=== PATIENT | female | born 1955 | race Caucasian/White ===

== ENCOUNTER 2021-01-18 14:26 | Inpatient (IN) | payer OTHER, MEDICAID, SELFPAY ==
[~2021-01-18] VITALS: Ht 157.5 cm; Wt 70.1 kg
[2021-01-18 14:26] VITALS: BP_SYST 165
--- NOTE | 2021-01-18 14:26 | NUR ---
Pt to bed 7 for evaluation. Pt gowned and attached to hospital monitor.
--- NOTE | 2021-01-18 14:28 | NUR ---
Pt BIB squad 187 for ALOC. Pt came from home and called for help because she was altered today. Pt is unable to answer questions appropriately and is a poor historian. Pt recently had hernia surgery 2 days ago and was prescribed [place]. Pupils appear constricted and pt presents as lethargic. GCS 11 with BS was (168) in route. V/S are stable.
--- NOTE | 2021-01-18 14:30 | NUR ---
Dr. Vasquez at bedside to assess.
[2021-01-18] MEDS ORDERED: NACL 0.9% 1,000 ML IV ONE (14:45)
[2021-01-18] MEDS ORDERED: NALOXONE HCL 2 MG/2 ML SYR (NARCAN) IVP ONE (14:45)
--- NOTE | 2021-01-18 14:50 | NUR ---
# 18 gauge angiocath placed to right AC. Use of asceptic technique. Opsite placed over site. Blood return noted. Blood for lab drawn from site. Flushed with 10 cc of normal saline. No evidence of infiltration noted. Patient tolerated well.
--- NOTE | 2021-01-18 14:50 | NUR ---
Portable CXR done at bedside.
[2021-01-18] MEDS ORDERED: NALOXONE HCL 2 MG/2 ML SYR ONE (14:53)
[2021-01-18] MEDS ORDERED: NALOXONE HCL 0.4 MG/ML AMP (NARCAN) ONE (14:53)
[2021-01-18] MEDS ORDERED: NALOXONE HCL 0.4 MG/ML AMP (NARCAN) IVP ONE (15:00)
--- NOTE | 2021-01-18 15:09 | NUR ---
In and out cath for urine specimen. Urine sent to lab for analysis.
--- NOTE | 2021-01-18 15:10 | NUR ---
Pt to CT scan by sonny.
[2021-01-18] MEDS ORDERED: NALOXONE HCL 2 MG/2 ML SYR IVP ONE (15:15)
--- NOTE | 2021-01-18 15:20 | NUR ---
Pt back from CT scan.
[2021-01-18 15:26] LABS: BLOOD, URINE NEGATIVE (NEGATIVE); CLARITY/URINE CLEAR (CLEAR); COLOR,URINE YELLOW (YELLOW); GLUCOSE,URINE TRACE (NEGATIVE); KETONES,URINE 2+ (NEGATIVE); LEUKOCYTE ESTERASE ,URINE NEGATIVE (NEGATIVE); NITRITE, URINE NEGATIVE (NEGATIVE); PROTEIN URINE NEGATIVE (NEGATIVE)
[2021-01-18 15:29] LABS: INR 1.1 (0.8-1.2); PROTHROMBIN TIME 11.6 SECS (9.5-12.5)
[2021-01-18 15:40] LABS: ANION GAP 9 (5-15); CALCIUM 9.2 mg/dL (8.4-11.0); CHLORIDE 99 mmol/L (98-107); CREATININE 0.84 mg/dL (0.55-1.30); GLUCOSE 153 mg/dL (70-99); POTASSIUM 3.2 mmol/L (3.5-5.1); SODIUM SERUM 137 mmol/L (136-145); UREA NITROGEN, BLOOD 24 mg/dL (8-21)
[2021-01-18 15:41] LABS: BASOPHILS % (AUTO) 0.1 % (0.0-2.0); EOSINOPHILS % (AUTO) 0.4 % (0.0-4.0); HEMATOCRIT 35.9 % (36-48); HEMOGLOBIN 12.8 g/dL (12.0-16.0); LYMPHOCYTES # (AUTO) 1.2 K/uL (1.0-5.5); LYMPHOCYTES % (AUTO) 15.7 % (20.5-51.5); MEAN CORPUSCULAR HEMOGLOBIN 32 pg (27-31); MEAN CORPUSCULAR HGB CONC 36 % (32-36); MEAN CORPUSCULAR VOLUME 89 fL (79.0-98.0); MONOCYTES # (AUTO) 0.7 K/uL (0.0-1.0); MONOCYTES % (AUTO) 9.4 % (1.7-9.3); NEUTROPHILS # (AUTO) 5.9 K/uL (1.8-7.7); NEUTROPHILS % (AUTO) 74.4 % (40.0-70.0); PLATELET COUNT (AUTO) 125 K/uL (130-430); RED BLOOD CELL COUNT(AUTO) 4.04 MIL/uL (4.2-6.2); RED CELL DISTRIBUTION WIDTH 18.1 % (9.0-15.0); WHITE BLOOD COUNT (AUTO) 7.9 K/uL (4.8-10.8)
[2021-01-18 15:44] LABS: GFR AFRICAN AMERICAN 88 mL/min (>90)
[2021-01-18 15:47] LABS: ALBUMIN 3.7 g/dL (3.4-4.8); ASPARTATE AMINOTRANSFERASE 34 U/L (10-37); TOTAL BILIRUBIN 4.2 mg/dL (0.0-1.0)
[2021-01-18 15:49] LABS: ALCOHOL, BLOOD < 3 mg/dL (<10)
[2021-01-18 16:01] LABS: ALANINE AMINOTRANSFERASE 33 U/L (12-78)
[2021-01-18 16:09] LABS: BILIRUBIN,URINE NEGATIVE (NEGATIVE)
--- NOTE | 2021-01-18 16:13 | NUR ---
PT CONTUNUES TO BE REDIRECTED, MOVING IN BED AND IV DISPLACED. NEW IV TO LEFT FA AND COBAN PLACED OVER. SAFETY PRECAUTIONS IN PLACE.
[2021-01-18 16:16] LABS: BARBITURATE, URINE NEGATIVE (NEG <=200); BENZODIAZEPINE, URINE NEGATIVE (NEG <=150); CANNABINOID, URINE NEGATIVE (NEG <=50); COCAINE, URINE NEGATIVE (NEG <=150); METHAMPHETAMINES SCREEN,URINE NEGATIVE (NEG <=500); OPIATE, URINE POSITIVE (NEG <=100); PHENCYCLIDINE SCREEN,URINE NEGATIVE (NEG <=25); UR TRICYCLIC ANTIDEPRESSANTS NEGATIVE (NEG <=300); URINE AMPHETAMINE NEGATIVE (NEG <=500); URINE METHADONE NEGATIVE (NEG <=200); URINE OXYCODONE SCREEN NEGATIVE (NEG <=100); URINE PROPOXYPHENE SCREEN NEGATIVE (NEG <=300)
--- NOTE | 2021-01-18 17:40 | NUR ---
FAMILY CALLED AND STATES THEY WILL BE IN TO SEE PT.
[2021-01-18 17:55] LABS: ACETAMINOPHEN < 1 ug/mL (1-30)
--- NOTE | 2021-01-18 18:29 | NUR ---
FAMILY AT BEDSIDE, UPDATED ON STATUS AND ALL QUESTIONS ANSWERED. REQUEST TO SPEAK WITH DR FIERRO ABOUT LIVER HISTORY.
[2021-01-18] MEDS ORDERED: KCL 20 mEq in 100 mL (PREMIX) 100 ML IV ONE (19:15)
--- NOTE | 2021-01-18 20:18 | NUR ---
Patient will be admitted to care of DR. EVANGELISTA. Admitted to MED SURG unit. Will go to room TBD. Belongings list completed. Complete and up to date summary report printed. SBAR report to be given at bedside with opportunity for questions.
--- NOTE | 2021-01-18 20:30 | NUR ---
PT UNABLE TO REVIEVE FULL LACTULOSE PO. TAKEN ABOUT 15 ML
[2021-01-18] MEDS ORDERED: LACTULOSE 20 GM/30 ML UDC PO ONE (20:45)
--- NOTE | 2021-01-18 22:20 | NUR ---
PT TRANSFERRED TO ROOM 100A VIA [facility].
[2021-01-18 22:35] VITALS: BP_SYST 152
--- NOTE | 2021-01-18 22:35 | NUR ---
ROUNDS PATIENT IN BED, VITALS STABLE, NO SIGNS OF ANY PAIN AND DISCOMFORT NOTED. ADMISSION DONE AND DOCUMENTED. NEEDS ATTENDED TO. SAFETY MEASURES IN PLACED. BED ALARM ON. CALL LIGHT PLACED WITHIN REACH.
[2021-01-18] MEDS: D5/0.45 NS 1,000 ML IV SCH (22:55)
--- NOTE | 2021-01-19 05:13 | NUR ---
Nutrition Update Kvng Scale 16 noted. Pt admitted for Altered Mental Status Diet: NPO BMI: 28.3 kg/m2 RD to follow per nutrition care standards.
[2021-01-19] MEDS: D5/0.45 NS 1,000 ML IV SCH ×2 (06:15→12:18)
--- NOTE | 2021-01-19 06:33 | NUR ---
CLOSING NOTES PATIENT AWAKE, NO COMPLAINTS AT THIS TIME, ALL NEEDS ATTENDED TO. SAFETY MEASURES MAINTAINED. CALL LIGHT PLACED WITHIN REACH.
--- NOTE | 2021-01-19 07:17 | NUR ---
CONSULTATION PAGED/CALLED Reason for Consultation: [] ALOC Person Who was Notified: [] Stefani BURRELL Consulting Physician: [] Stefani BURRELL Bee Raiser Specialty: [] NEURO Ordering Physician: [] DR Iván EVANGELISTA
--- NOTE | 2021-01-19 07:45 | NUR ---
OPENING NOTE Received shift report from shift production associate RN. Patient AxOx1 (self) currently resting in bed and respirations remain even and non-labored on room air. IV is patent and infusing fluids as ordered. Bed locked in lowest position and call light is within reach. Will continue to monitor.
[2021-01-19 08:00] VITALS: BP_SYST 150
[2021-01-19] MEDS ORDERED: ONDANSETRON HCL 4 MG/2 ML VIAL IVP PRN (09:30)
--- NOTE | 2021-01-19 09:45 | NUR ---
CONSULTATION PAGED/CALLED Reason for Consultation: [] ELEVATED AMMONIA Person Who was Notified: [] GREGORIO Consulting Physician: [] DR BRITT County Administrator Specialty: [] GI Ordering Physician: [] DR EVANGELISTA
--- NOTE | 2021-01-19 10:20 | NUR ---
Patient History History obtained from daughter Esthela Espinoza at [phone] (wants to be notified with updates): reports medical history liver cirrhosis, hypertension, diabetes mellitus, esophageal varices, neuropathy, and ventral hernia with mesh placement on 01/13/21. Daughter reports patient has been lethargic, experiencing abdominal pain, and decreased appetite since surgery at [facility], eating few crackers only. Reports daily medications: glipizide, metoprolol, and trazodone and PRN medications: ativan and hydrocodone.
[2021-01-19 11:26] VITALS: BP_SYST 139
[2021-01-19] MEDS ORDERED: glipiZIDE XL 5 MG TAB ( GLUCOTROL XL) PO ONE (14:15)
--- NOTE | 2021-01-19 15:00 | NUR ---
New IV insert IV dislodged. Left upper arm edematous. No pain or redness. Discontinued IV and elevated arm. Inserted new IV 24 gauge to left hand, no signs of infiltration or phlebitis. Patient denies pain. Site patent with blood return. IVF continued. Will continue to monitor.
[2021-01-19 15:17] VITALS: BP_SYST 156
[2021-01-19] MEDS ORDERED: hydrALAZINE HCL 20 MG/ML VIAL IVP PRN (16:00)
--- NOTE | 2021-01-19 16:33 | NUR ---
ST EVALUATION COMPLETED. ST TX NOT INDICATED AT THIS TIME. UNABLE TO ROUSE PT. THERMAL STIMULATION DID NOT EVOKE A SWALLOW. PT NOT SAFE FOR PO INTAKE AT THIS TIME. RECOMMEND CONTINUE NPO WITH ALTERNATIVE MEANS OF NUTRITION.
--- NOTE | 2021-01-19 17:22 | NUR ---
PAGED PAGED AT [phone] SPOKE WITH FRANCISCO J.
[2021-01-19] MEDS: INSULIN REGULAR, HUMAN 100 UNITS/ML, 10 ML VIAL (humuLIN R) SUBCUT PRN (18:03)
[2021-01-19] MEDS ORDERED: RIFAXIMIN 550 MG TABLET NG ONE (18:30)
[2021-01-19] MEDS ORDERED: ACETAMINOPHEN 650 MG/20.3 ML UDC NG PRN (18:30)
[2021-01-19] MEDS ORDERED: LACTULOSE 20 GM/30 ML UDC NG ONE (18:30)
--- NOTE | 2021-01-19 18:35 | NUR ---
SPOKE WITH MD Spoke with Dr. Ro (GI) Orders for insertion of NG tube, lactulose, and rifaximin given. Noted and will carry out.
--- NOTE | 2021-01-19 18:46 | NUR ---
CLOSING NOTE Patient currently resting in bed and respirations remain even and non-labored on room air. IV is patent and saline-locked. Bed locked in lowest position and call light is within reach. All needs met throughout shift. Will endorse to table games shift manager RN regarding pending orders. Addendum: 01/19/21 at 1847 by Esthela Diaz RN IV infusing fluids as ordered.
[2021-01-19] MEDS: LACTULOSE 20 GM/30 ML UDC NG SCH (20:38)
--- NOTE | 2021-01-19 20:50 | NUR ---
NGT placement # 16 FR NG tube placed to right nare. Placement checked by auscultation of instilled air into stomach and aspiration of gastric contents. Tubing taped in place to prevent dislodging. Patient tolerated . Awaiting X-ray for confirmation. Addendum: 01/19/21 at 2121 by Laisha Franklin RN X-ray confirmed placement.
--- NOTE | 2021-01-20 00:06 | NUR ---
Paged Dr. Dunn [phone], s/w Nidhi
--- NOTE | 2021-01-20 00:11 | NUR ---
Daughter Maryjo Escalante was called and informed nurse Haydee s/w and received bilateral soft wrist restraint order. Two nurses (Haydee,RN and SIMI Interiano) s/w her and received telephone consent.
[2021-01-20 00:18] VITALS: BP_SYST 144
[2021-01-20 04:00] VITALS: BP_SYST 136
--- NOTE | 2021-01-20 05:16 | NUR ---
Nutrition Update Kvng Scale 14 noted. Pt admitted for Altered Mental Status Diet: NPO BMI: 28.3 kg/m2 RD to follow per nutrition care standards.
[2021-01-20] MEDS: D5/0.45 NS 1,000 ML IV SCH ×3 (05:38→18:58)
[2021-01-20 07:12] LABS: BASOPHILS % (AUTO) 0.1 % (0.0-2.0); EOSINOPHILS # (AUTO) 0.2 K/uL (0.0-0.4); EOSINOPHILS % (AUTO) 2.5 % (0.0-4.0); HEMOGLOBIN 11.4 g/dL (12.0-16.0); LYMPHOCYTES # (AUTO) 1.1 K/uL (1.0-5.5); MEAN CORPUSCULAR HEMOGLOBIN 32 pg (27-31); MEAN CORPUSCULAR HGB CONC 36 % (32-36); MEAN CORPUSCULAR VOLUME 89 fL (79.0-98.0); MONOCYTES # (AUTO) 0.8 K/uL (0.0-1.0); MONOCYTES % (AUTO) 9.6 % (1.7-9.3); NEUTROPHILS # (AUTO) 5.8 K/uL (1.8-7.7); NEUTROPHILS % (AUTO) 73.8 % (40.0-70.0); PLATELET COUNT (AUTO) 102 K/uL (130-430); RED BLOOD CELL COUNT(AUTO) 3.61 MIL/uL (4.2-6.2); RED CELL DISTRIBUTION WIDTH 18.1 % (9.0-15.0); WHITE BLOOD COUNT (AUTO) 7.9 K/uL (4.8-10.8)
[2021-01-20 07:22] LABS: CALCIUM 8.1 mg/dL (8.4-11.0); CREATININE 0.62 mg/dL (0.55-1.30); PHOSPHORUS 2.1 mg/dL (2.7-4.5)
--- NOTE | 2021-01-20 07:56 | NUR ---
OPENING NOTE Received shift report from shift lab technician RN. Patient Naomie (self)currently resting in bed and respirations remain even and non-labored on room air. NG tube is in place and IV is patent and infusing fluids as ordered. Soft wrist restraints are in place. Bed locked in lowest position and call light is within reach. Will continue to monitor. Addendum: 01/20/21 at 1809 by Esthela Diaz RN LATE ENTRY 01/20/21 @ 0800 (due to patient care): Removed wrist restraints per cancelled order
[2021-01-20 08:04] VITALS: BP_SYST 136
[2021-01-20 08:40] LABS: POTASSIUM 2.5 mmol/L (3.5-5.1)
[2021-01-20] MEDS: glipiZIDE XL 5 MG TAB ( GLUCOTROL XL) PO SCH ×2 (09:00→10:02)
--- NOTE | 2021-01-20 09:05 | NUR ---
MD Tarah Dunn paged for Potassium 2.5. Addendum: 01/20/21 at 0908 by Alexa Lomax RN Notified Dr. Dunn; will carry out new orders.
--- NOTE | 2021-01-20 09:08 | NUR ---
HIGH ALERT NOTE for Potassium: Called Dr. Dunn back at [phone] identified within the medical roster to verify physician authenticity.
[2021-01-20] MEDS ORDERED: POTASSIUM CHLORIDE 40 MEQ in NS 250 ML IV ONE (09:30)
[2021-01-20] MEDS: RIFAXIMIN 550 MG TABLET NG SCH ×2 (10:02→20:57)
[2021-01-20] MEDS: LACTULOSE 20 GM/30 ML UDC NG SCH ×3 (10:02→20:57)
[2021-01-20 11:28] VITALS: BP_SYST 141
[2021-01-20] MEDS ORDERED: K PHOS 15 MM in NS 250 ML IV ONE (12:00)
--- NOTE | 2021-01-20 14:30 | NUR ---
Notes Patient wakes to verbal stimuli, opens eyes upon command but cannot keep open. Oriented x 3, reoriented to situation. Slurred speech. No pain or distress. at bedside. Provided ciarra care and changed patient x 1 BM. Dressing change provided to medical abdomen. [place] in place, skin intact. Cleansed with warm water and mild soap, patted dry. Cleansed with normal saline, patted dry. Applied Povidone-iodine to rosemary site and covered with ABD pad. Patient tolerated well. Call light in reach and bed locked in lowest position. Will continue to monitor. Addendum: 01/20/21 at 1549 by Alexa Lomax RN Medial* abdomen. Patient lethargic.
[2021-01-20 15:24] VITALS: BP_SYST 148
--- NOTE | 2021-01-20 16:37 | NUR ---
CM: Received call from diane Salazar at [facility] stated the pt is under [facility]. DIANE LVM to [facility] dept to verify the insurance and update the correct info. The clinicals faxed to # [phone], tel # [phone] attn Martin.
--- NOTE | 2021-01-20 18:49 | NUR ---
CLOSING NOTE Patient currently resting in bed and respirations remain even and non-labored on room air. IV is patent and infusing fluids as ordered. All needs met throughout shift. NG tube remains in place. Bed locked in lowest position and call light is within reach. Will endorse to production shift supervisor RN.
[2021-01-20] MEDS: LORazepam 2 MG/ML VIAL IVP PRN (20:59)
--- NOTE | 2021-01-20 21:28 | NUR ---
PATIENT AMBULATION AND REPOSITIONING AFTER USE OF TOILET X1 FOR BOWEL MOVEMENT AND INCONTENENCE OF BOWEL EPISODE X1. GIVEN ANXIETY MEDICATION PATIENT SAYS SHE FEELS LIKE SHE IS ANXIOUS. HAWK ROSS RN
[2021-01-21] MEDS: INSULIN REGULAR, HUMAN 100 UNITS/ML, 10 ML VIAL (humuLIN R) SUBCUT PRN (00:20)
[2021-01-21 00:36] VITALS: BP_SYST 152
[2021-01-21 06:48] LABS: ALBUMIN 2.7 g/dL (3.4-4.8); CREATININE 0.64 mg/dL (0.55-1.30); TOTAL BILIRUBIN 2.1 mg/dL (0.0-1.0)
[2021-01-21 06:51] LABS: BASOPHILS % (AUTO) 0.2 % (0.0-2.0); EOSINOPHILS # (AUTO) 0.2 K/uL (0.0-0.4); HEMATOCRIT 30.8 % (36-48); HEMOGLOBIN 11.1 g/dL (12.0-16.0); LYMPHOCYTES # (AUTO) 1.2 K/uL (1.0-5.5); LYMPHOCYTES % (AUTO) 15.6 % (20.5-51.5); MEAN CORPUSCULAR HEMOGLOBIN 32 pg (27-31); MEAN CORPUSCULAR HGB CONC 36 % (32-36); MEAN CORPUSCULAR VOLUME 89 fL (79.0-98.0); MONOCYTES # (AUTO) 0.8 K/uL (0.0-1.0); MONOCYTES % (AUTO) 10.4 % (1.7-9.3); NEUTROPHILS # (AUTO) 5.4 K/uL (1.8-7.7); NEUTROPHILS % (AUTO) 70.8 % (40.0-70.0); RED BLOOD CELL COUNT(AUTO) 3.45 MIL/uL (4.2-6.2); RED CELL DISTRIBUTION WIDTH 18.5 % (9.0-15.0); WHITE BLOOD COUNT (AUTO) 7.6 K/uL (4.8-10.8)
--- NOTE | 2021-01-21 07:03 | NUR ---
HANDOFF WITH SIMI CRONIN. HAWK ROSS RN
--- NOTE | 2021-01-21 07:30 | NUR ---
MORNING ROUNDS: PATIENT LYING ON THE BED RESTING. RIGHT NARES NG TUBE CLAMPED,INTACT. IV FLUIDS RUNNING AT RIGHT HAND INTACT. NO DISTRESS.
[2021-01-21 07:52] LABS: CALCIUM 7.6 mg/dL (8.4-11.0)
[2021-01-21 08:05] LABS: POTASSIUM 2.5 mmol/L (3.5-5.1)
--- NOTE | 2021-01-21 08:08 | NUR ---
PAGED FOR CRITICAL LAB PAGED DR EVANGELISTA FOR CRITICAL LAB VIA PAGER
[2021-01-21 08:39] VITALS: BP_SYST 158
[2021-01-21] MEDS: D5/0.45 NS 1,000 ML IV SCH ×2 (08:40→18:15)
[2021-01-21] MEDS: LACTULOSE 20 GM/30 ML UDC NG SCH ×3 (08:41→21:51)
[2021-01-21] MEDS: glipiZIDE XL 5 MG TAB ( GLUCOTROL XL) PO SCH (08:41)
[2021-01-21] MEDS: RIFAXIMIN 550 MG TABLET NG SCH ×2 (08:41→21:51)
[2021-01-21] MEDS ORDERED: POTASSIUM CHLORIDE 40 MEQ in NS 250 ML IV ONE (09:30)
[2021-01-21 11:14] LABS: PLATELET COUNT (AUTO) 97 K/uL (130-430)
[2021-01-21 12:10] VITALS: BP_SYST 146
[2021-01-21 16:00] VITALS: BP_SYST 150
--- NOTE | 2021-01-21 16:10 | NUR ---
MD PAGED: LEFT MESSAGE C/O EXCHANGE IESHA FOR NG TUBE DC ORDER .PATIENT WANTS TO TRY ORAL MEDS,PT FULLY AWAKE.
--- NOTE | 2021-01-21 16:26 | NUR ---
FAMILY VISIT: FAMILIES AT THE BEDSIDE. PLAN OF CARE UPDATED.
--- NOTE | 2021-01-21 16:34 | NUR ---
SPOKE WITH MD: TALK TO DR Mari EVANGELISTA TO CALL GI REGARDING DC NG TUBE ,IF OKAY WITH GI .
--- NOTE | 2021-01-21 16:35 | NUR ---
GI PAGED: SPOKE WITH MAURICIO ELLSWORTH FOR GI.
--- NOTE | 2021-01-21 16:44 | NUR ---
NEW ORDER: DC NG TUBE.START PATIENT ON FULL LIQUID THEN ADVANCE TO SOFT DIET IN AM WHEN TOLERATED BY ORDER OF DR Mari BRITT.
--- NOTE | 2021-01-21 17:12 | NUR ---
DC NG TUBE: REMOVED RIGHT NARES NG TUBE ORDERED,WITH NO PROBLEM.
--- NOTE | 2021-01-21 17:12 | NUR ---
ORAL MEDS: TOOK LACTULOSE PO WELL.WELL TOLERATED WITH OUT A PROBLEM.
--- NOTE | 2021-01-21 18:26 | NUR ---
EVENING ROUNDS: PATIENT HAVING FULL LIQUID THIS TIME. NO NAUSEA/VOMITING NOTED. CALL LIGHT WITH IN REACH. BED LOCKED AT LOWEST POSITION. WILL BE TRANSFERRED TO ROOM 110B PER REQUEST AFTER DINNER.
--- NOTE | 2021-01-21 19:53 | NUR ---
ASSIST TO OPEN DINNER ITEMS AT BEDSIDE AND ARRANGE NEW ROOM, 110B. PATIENT REQUEST FOR SHOWER. ASSIST TO GET SURGICAL SITE CLEAN AND DRY DRESSING FOR SHOWER AND IV SITE ON RIGHT HAND A COVER FOR SHOWER. PATIENT IN SHOWER AT THIS TIME. HAWK ROSS RN
[2021-01-21] MEDS: LORazepam 2 MG/ML VIAL IVP PRN (22:06)
[2021-01-22] MEDS: INSULIN REGULAR, HUMAN 100 UNITS/ML, 10 ML VIAL (humuLIN R) SUBCUT PRN ×2 (00:17→11:48)
[2021-01-22 01:57] VITALS: BP_SYST 156
[2021-01-22] MEDS: D5/0.45 NS 1,000 ML IV SCH (04:15)
--- NOTE | 2021-01-22 07:17 | NUR ---
PATIENT HANDOFF REPORT WITH LIONEL Nguyen RN. HAWK Romero RN
[2021-01-22 07:36] LABS: BASOPHILS % (AUTO) 0.3 % (0.0-2.0); EOSINOPHILS # (AUTO) 0.2 K/uL (0.0-0.4); EOSINOPHILS % (AUTO) 2.6 % (0.0-4.0); HEMATOCRIT 30.2 % (36-48); HEMOGLOBIN 10.7 g/dL (12.0-16.0); LYMPHOCYTES # (AUTO) 0.9 K/uL (1.0-5.5); LYMPHOCYTES % (AUTO) 12.1 % (20.5-51.5); MEAN CORPUSCULAR HEMOGLOBIN 32 pg (27-31); MEAN CORPUSCULAR HGB CONC 36 % (32-36); MEAN CORPUSCULAR VOLUME 91 fL (79.0-98.0); MONOCYTES # (AUTO) 0.5 K/uL (0.0-1.0); MONOCYTES % (AUTO) 7.6 % (1.7-9.3); NEUTROPHILS # (AUTO) 5.6 K/uL (1.8-7.7); NEUTROPHILS % (AUTO) 77.4 % (40.0-70.0); PLATELET COUNT (AUTO) 92 K/uL (130-430); RED BLOOD CELL COUNT(AUTO) 3.34 MIL/uL (4.2-6.2); RED CELL DISTRIBUTION WIDTH 18.3 % (9.0-15.0); WHITE BLOOD COUNT (AUTO) 7.2 K/uL (4.8-10.8)
[2021-01-22 07:40] LABS: CALCIUM 7.9 mg/dL (8.4-11.0); CREATININE 0.64 mg/dL (0.55-1.30); TOTAL BILIRUBIN 2.5 mg/dL (0.0-1.0)
[2021-01-22 08:00] VITALS: BP_SYST 141
[2021-01-22 08:44] LABS: POTASSIUM 2.7 mmol/L (3.5-5.1)
[2021-01-22] MEDS: glipiZIDE XL 5 MG TAB ( GLUCOTROL XL) PO SCH (09:12)
[2021-01-22] MEDS: RIFAXIMIN 550 MG TABLET NG SCH ×2 (09:12→21:59)
[2021-01-22] MEDS ORDERED: LACTULOSE 20 GM/30 ML UDC NG ONE (09:30)
--- NOTE | 2021-01-22 09:45 | NUR ---
PAGED FOR CRITICAL LAB PAGED DR EVANGELISTA FOR CRITICAL LABS VIA PAGER
[2021-01-22 12:00] VITALS: BP_SYST 140
[2021-01-22] MEDS ORDERED: KCL 40 mEq in 100 mL (PREMIX) 100 ML IV ONE (13:45)
[2021-01-22] MEDS: NORMAL SALINE 5 ML DISP.SYRIN IVF SCH ×2 (14:00→22:09)
[2021-01-22] MEDS ORDERED: POTASSIUM CHLORIDE 40 MEQ in NS 250 ML IV ONE (15:00)
[2021-01-22 16:00] VITALS: BP_SYST 138
--- NOTE | 2021-01-22 18:30 | NUR ---
Note Pt has been ambulatory and goes to restroom with IV pole. Pt was checked on q1' and PRN all shift for needs and care. Pt had family at bedside throughout the shift. Pt's bed in low position all shift. Pt's IV in right forearm infusing K-Remy at this time. Pt stable and denies any needs at this time. Call light within reach.
[2021-01-22] MEDS: LACTULOSE 20 GM/30 ML UDC NG SCH (21:59)
[2021-01-23 00:05] VITALS: BP_SYST 140
[2021-01-23 05:30] VITALS: BP_SYST 147
[2021-01-23] MEDS: NORMAL SALINE 5 ML DISP.SYRIN IVF SCH ×2 (05:30→13:50)
[2021-01-23 07:24] LABS: BASOPHILS % (AUTO) 0.3 % (0.0-2.0); EOSINOPHILS # (AUTO) 0.1 K/uL (0.0-0.4); EOSINOPHILS % (AUTO) 1.7 % (0.0-4.0); HEMATOCRIT 28.3 % (36-48); LYMPHOCYTES % (AUTO) 14.3 % (20.5-51.5); MEAN CORPUSCULAR HEMOGLOBIN 32 pg (27-31); MEAN CORPUSCULAR HGB CONC 36 % (32-36); MEAN CORPUSCULAR VOLUME 90 fL (79.0-98.0); MONOCYTES # (AUTO) 0.5 K/uL (0.0-1.0); MONOCYTES % (AUTO) 7.8 % (1.7-9.3); NEUTROPHILS # (AUTO) 5.4 K/uL (1.8-7.7); NEUTROPHILS % (AUTO) 75.9 % (40.0-70.0); PLATELET COUNT (AUTO) 92 K/uL (130-430); RED BLOOD CELL COUNT(AUTO) 3.14 MIL/uL (4.2-6.2); RED CELL DISTRIBUTION WIDTH 18.2 % (9.0-15.0); WHITE BLOOD COUNT (AUTO) 7.1 K/uL (4.8-10.8)
[2021-01-23 07:57] VITALS: BP_SYST 149
[2021-01-23 08:07] LABS: ALBUMIN 2.8 g/dL (3.4-4.8); CALCIUM 7.6 mg/dL (8.4-11.0); CREATININE 0.58 mg/dL (0.55-1.30); TOTAL BILIRUBIN 1.8 mg/dL (0.0-1.0)
[2021-01-23 08:43] LABS: POTASSIUM 2.8 mmol/L (3.5-5.1)
[2021-01-23] MEDS: glipiZIDE XL 5 MG TAB ( GLUCOTROL XL) PO SCH (09:14)
[2021-01-23] MEDS: LACTULOSE 20 GM/30 ML UDC NG SCH (09:14)
[2021-01-23] MEDS: RIFAXIMIN 550 MG TABLET NG SCH (09:14)
--- NOTE | 2021-01-23 09:27 | NUR ---
ATTENDING MD DR EVANGELISTA WAS CALLED, RE: CRITICAL K LEVEL.
--- NOTE | 2021-01-23 10:21 | NUR ---
Spoke w/ daughter, Esthela, . I explained the process for [facility] and home Health services and F/U with surgeon after the patient is discharged. She requested a toilet seat riser-I explained the patient could buy one, they are not an item that is covered by insurance.
--- NOTE | 2021-01-23 10:57 | NUR ---
Discharge Planning: DCP faxed pt home health referral to [facility] (P [phone]) DCP to follow up Addendum: 01/23/21 at 1443 by Sybil Baum DP DCP followed up on pt home health referral to [facility] (P [phone]) declined pt. DCP faxed pt referral to [facility] (P [phone]) DCP to follow up. Addendum: 01/23/21 at 1500 by Sybil Baum DP [facility] (P [phone] accepted pt
[2021-01-23] MEDS ORDERED: POTASSIUM CHLORIDE 40 MEQ in NS 250 ML IV ONE (11:00)
[2021-01-23 12:00] VITALS: BP_SYST 137
[2021-01-23] MEDS ORDERED: GLIP-201 PO (13:27)
[2021-01-23] MEDS ORDERED: RIFA550T5 NG (13:27)
[2021-01-23] MEDS ORDERED: Lactulose NG (13:27)
--- NOTE | 2021-01-23 15:15 | NUR ---
Note Pt worked with PT on ambulation and exercise. Pt has been ambulating to restroom with steady gait and IV pole. Pt's Potassium IVF's infusing well through right hand IV site. Call light within reach. No needs noted at this time.
--- NOTE | 2021-01-23 15:50 | NUR ---
NOTE Pt was notified that [facility] [phone]. Pt may leave as soon as Potassium IVF have infused. K-Remy running at 50cc/hr, as IV site painful with Potassium IV infusing per pt. Pt calling her for pickup this evening.
[2021-01-23 16:00] VITALS: BP_SYST 131
[2021-01-23 17:41] VITALS: BP_SYST 99
--- NOTE | 2021-01-23 18:40 | NUR ---
Note Pt showered after Potassium IVF's finished. Pt dressed in street clothes and packed all her belongings. Right hand IV dc'd. SIte benign and no swelling/redness/bleeding noted. Pt stable during ambulation and oriented all shift. Pt was checked on all shift q1' and PRN. Pt's bed in low position. Abdominal incision open to air - rosemary and incision intact. No drainage/bleeding noted at this time. Call light within reach. Pt given discharge instructions. Questions/concerns were answered at this time.
== END 2021-01-23 20:08 | disposition home health service (06) | DRG 441 ==
LOC: SED 14:26 → SMU 20:15
PROVIDERS: ADMIT Preventive Medicine Preventive Medicine/Occupational Environmental Medicine; ATTEND Preventive Medicine Preventive Medicine/Occupational Environmental Medicine
DX: K72.00 Acute and subacute hepatic failure without coma (principal); E43 Unspecified severe protein-calorie malnutrition; G93.41 Metabolic encephalopathy; E87.2 Acidosis; D69.6 Thrombocytopenia, unspecified; E87.6 Hypokalemia; K74.60 Unspecified cirrhosis of liver; E83.52 Hypercalcemia; Z20.822 Contact with and (suspected) exposure to COVID-19; E83.51 Hypocalcemia; R73.9 Hyperglycemia, unspecified; D64.9 Anemia, unspecified; E83.39 Other disorders of phosphorus metabolism; E86.0 Dehydration; Z68.28 Body mass index [BMI] 28.0-28.9, adult
CPT/HCPCS: 36415; 70450-TC; 71045; 76376; 76700-TC; 80048; 80053; 80307; 81003; 82140; 82962; 83605; 83735; 84100; 84484; 85025; 85610-TC; 85730-TC; 87040-TC; 87081; 92610-GN; 93005; 95816; 96361; 96374; 96376; 99291; G0480; G0481; G0482; J1815; J2060; J2310; J3480; J7050

== ENCOUNTER 2023-06-26 15:36 | Emergency (ER) | payer OTHER, MEDICAID ==
[~2023-06-26] VITALS: Ht 154.9 cm; Wt 68.5 kg
[~2023-06-26 15:36] MED LIST: GLIP-201 PO; Lactulose NG; METF-379 PO; METF-518 PO; RIFA550T5 NG
[2023-06-26 15:46] VITALS: BP_SYST 153; PULSE 83; RESP 18; TEMP 98.3; O2SAT 98
[2023-06-26 16:30] LABS: HEMATOCRIT 34.5 % (36-48); HEMOGLOBIN 12.4 g/dL (12.0-16.0); MEAN CORPUSCULAR HEMOGLOBIN 33 pg (27-31); MEAN CORPUSCULAR HGB CONC 36 % (32-36); MEAN CORPUSCULAR VOLUME 93 fL (79.0-98.0); PLATELET COUNT (AUTO) 56 K/uL (130-430); RED BLOOD CELL COUNT(AUTO) 3.73 MIL/uL (4.2-6.2); RED CELL DISTRIBUTION WIDTH 15.3 % (9.0-15.0); WHITE BLOOD COUNT (AUTO) 2.6 K/uL (4.8-10.8)
[2023-06-26 16:50] LABS: INR 1.1 (0.8-1.2); PROTHROMBIN TIME 11.8 SECS (9.5-12.5)
[2023-06-26 16:58] LABS: ALBUMIN 3.2 g/dL (3.4-4.8); BILIRUBIN,DIRECT 0.9 mg/dL (0.0-0.3); CALCIUM 8.9 mg/dL (8.4-11.0); CREATININE 0.84 mg/dL (0.55-1.30); POTASSIUM 3.8 mmol/L (3.5-5.1); TOTAL BILIRUBIN 3.1 mg/dL (0.0-1.0)
[2023-06-26 17:03] LABS: BILIRUBIN,URINE 1+ (NEGATIVE); BLOOD, URINE NEGATIVE (NEGATIVE); CLARITY/URINE CLEAR (CLEAR); COLOR,URINE YELLOW (YELLOW); GLUCOSE,URINE NEGATIVE (NEGATIVE); KETONES,URINE NEGATIVE (NEGATIVE); LEUKOCYTE ESTERASE ,URINE NEGATIVE (NEGATIVE); NITRITE, URINE NEGATIVE (NEGATIVE); PROTEIN URINE NEGATIVE (NEGATIVE)
[2023-06-26] MEDS ORDERED: HYDR-3917 PO (17:26)
[2023-06-26] MEDS ORDERED: IBUP-1969 PO (17:26)
[2023-06-26 17:32] LABS: BACTERIA,URINE FEW /HPF (None Seen); CALCIUM OXALATE CRYSTALS,UR 70-100 /HPF (None Seen); MUCUS,URINE 2+ /LPF (None Seen); RBC,URINE 0-3 /HPF (0-3); WBC,URINE 0-3 /HPF (0-3)
[2023-06-26 17:36] VITALS: BP_SYST 148; PULSE 77; RESP 18; TEMP 98.3; O2SAT 98
[2023-06-26 17:42] LABS: BASOPHILS % (MANUAL) 0 % (0-2); EOSINOPHILS % (MANUAL) 3 % (0-7); LYMPHOCYTES % (MANUAL) 28 % (20-46); MONOCYTES % (MANUAL) 6 % (0-11)
[2023-06-26 17:43] LABS: PLATELET ESTIMATE DECREASED (ADEQUATE)
== END 2023-06-26 17:36 | disposition home or self-care (01) ==
LOC: SED 15:36
DX: K43.9 Ventral hernia without obstruction or gangrene (principal); E11.9 Type 2 diabetes mellitus without complications; I10 Essential (primary) hypertension
CPT/HCPCS: 36415; 80048; 80076; 81000; 81001; 81015; 82150; 83605; 83690; 85007; 85027; 85610; 85730; 87086; 99284